=== PATIENT | female | born 1930 | race Caucasian/White ===

== ENCOUNTER 2017-06-23 08:48 | Outpatient (RCR) | payer MEDICARE, OTHER | END 2017-09-20 | disposition home or self-care (01) | LOC: LAB 08:48 | PROVIDERS: ATTEND Nurse Practitioner | DX: R19.7 Diarrhea, unspecified (principal) | CPT/HCPCS: 87324; 87449 ==

== ENCOUNTER → 2018-10-09 | Outpatient (CLI) | payer MEDICARE, OTHER ==
--- NOTE | 2018-10-09 09:35 | Diagnostic Imaging Report ---
INDICATION: Shortness of breath and bradycardia Portable chest 9:05 AM Heart size and pulmonary vascularity are upper limits of normal. Lungs are clear. There are no effusions or pneumothoraces. IMPRESSION: No acute abnormalities in the chest. Dictated by: Dictated on workstation # [id number]
== END ==
LOC: CARD 08:19
PROVIDERS: ATTEND Physician Assistant
DX: R00.1 Bradycardia, unspecified (principal); R06.02 Shortness of breath; I10 Essential (primary) hypertension; I08.1 Rheumatic disorders of both mitral and tricuspid valves
CPT/HCPCS: 71045; 93005; 93306